=== PATIENT | male | born 1980 | race Native Hawaiian/Other Pacific Islander ===

== ENCOUNTER 2016-10-29 11:37 | Observation (INO) | payer OTHER ==
[~2016-10-29] VITALS: Ht 185.4 cm; Wt 104.5 kg
[2016-10-29 12:54] LABS: PLATELET COUNT 217 K/uL (142-355)
[2016-10-29 13:29] LABS: SODIUM 135 mmol/L (136-145)
[2016-10-29 16:13] VITALS: BP 125/71; TEMP 98; Ht 185.4 cm; Wt 104.5 kg
[2016-10-29] MEDS ORDERED: LISI20TA11 PO (16:27)
[2016-10-29] MEDS ORDERED: ZANTAC 75 PO (16:28)
[2016-10-29] MEDS ORDERED: CELEXA40 MG PO (16:28)
[2016-10-29 20:23] VITALS: BP 112/66; TEMP 98.8
[2016-10-30] VITALS (13 sets, daily range): BP systolic 100–158; BP diastolic 47–96; TEMP 97.7–98.9
[2016-10-30 05:03] LABS: POTASSIUM 4.5 mmol/L (3.6-5.2); SODIUM 138 mmol/L (136-145)
[2016-10-30 16:53] LABS: PLATELET COUNT 222 K/uL (142-355)
== END 2016-10-30 20:15 | disposition home or self-care (01) ==
LOC: MED/SURG 11:37
PROVIDERS: ADMIT Family Medicine
PROC: 0FT44ZZ Resection of Gallbladder, Percutaneous Endoscopic Approach (ICD-10-PCS; principal; 2016-10-30)
DX: K80.10 Calculus of gallbladder with chronic cholecystitis without obstruction (principal)
CPT/HCPCS: 36415; 80053; 81000; 83605; 85027; 87040; 87077; 87185; 87186; 87205; 96365; 96366; 96367; 99220; G0378; G0379; J0330; J0690; J1170; J2001; J2175; J2250; J2704; J2710; J3010; J3490

== ENCOUNTER 2016-11-07 08:39 | Emergency (ER) | payer OTHER ==
[~2016-11-07] VITALS: Ht 188 cm; Wt 110.2 kg
[~2016-11-07 08:39] MED LIST: CELEXA40 MG PO; LISI20TA11 PO; ZANTAC 75 PO
[2016-11-07 09:28] LABS: PLATELET COUNT 245 K/uL (142-355)
[2016-11-07 09:44] LABS: POTASSIUM 4.5 mmol/L (3.6-5.2); SODIUM 134 mmol/L (136-145)
[2016-11-07 14:26] VITALS: BP 117/73; TEMP 98
== END 2016-11-07 14:31 | disposition home or self-care (01) ==
LOC: ED 08:39
PROVIDERS: Emergency Medicine
DX: R10.9 Unspecified abdominal pain (principal); G89.18 Other acute postprocedural pain
CPT/HCPCS: 36415; 80053; 81000; 82150; 83690; 85027; 96372; 99283; J1885; J2270; J2405; Q9963

== ENCOUNTER → 2017-01-11 21:49 | Outpatient (CLI) | payer OTHER | END | disposition home or self-care (01) | LOC: AMB 21:49 | DX: Z04.3 Encounter for examination and observation following other accident (principal) ==

== ENCOUNTER 2017-01-11 23:06 | Emergency (ER) | payer OTHER ==
[~2017-01-11] VITALS: Ht 185.4 cm; Wt 108.9 kg
[2017-01-12 00:50] VITALS: BP 150/99; TEMP 99.1
== END 2017-01-12 00:58 | disposition home or self-care (01) ==
LOC: ED 23:06
DX: S16.1XXA Strain of muscle, fascia and tendon at neck level, initial encounter (principal); S00.83XA Contusion of other part of head, initial encounter; S41.102A Unspecified open wound of left upper arm, initial encounter; S41.101A Unspecified open wound of right upper arm, initial encounter; S46.812A Strain of other muscles, fascia and tendons at shoulder and upper arm level, left arm, initial encounter; V29.9XXA Motorcycle rider (driver) (passenger) injured in unspecified traffic accident, initial encounter; Y92.488 Other paved roadways as the place of occurrence of the external cause
CPT/HCPCS: 90715; 96372; 99283; J1885

== ENCOUNTER 2020-08-22 17:00 | Outpatient (CLI) | payer OTHER | END 2020-08-22 20:20 | disposition home or self-care (01) | LOC: RAD 17:00 | PROVIDERS: ATTEND Nurse Practitioner Family | DX: R05 Cough (principal) ==

== ENCOUNTER 2021-05-22 17:31 | Emergency (ER) | payer OTHER ==
[~2021-05-22] VITALS: Ht 185.4 cm; Wt 89.8 kg
[2021-05-22 18:41] LABS: PLATELET COUNT 218 K/uL (142-355)
[2021-05-22 18:56] LABS: POTASSIUM 4.1 mmol/L (3.6-5.2)
[2021-05-22 20:39] VITALS: BP 161/81; TEMP 98.5
== END 2021-05-22 20:39 | disposition home or self-care (01) ==
LOC: ED 17:31
PROVIDERS: Emergency Medicine Emergency Medical Services
DX: S70.01XA Contusion of right hip, initial encounter (principal); S76.011A Strain of muscle, fascia and tendon of right hip, initial encounter; V59.40XA Driver of pick-up truck or van injured in collision with unspecified motor vehicles in traffic accident, initial encounter; Y92.89 Other specified places as the place of occurrence of the external cause
CPT/HCPCS: 36415; 80053; 81000; 82150; 83690; 85027; 96360; 96375; 99284; J1885; Q9963

== ENCOUNTER 2022-05-27 12:57 | Emergency (ER) | payer OTHER ==
[~2022-05-27] VITALS: Ht 185.4 cm; Wt 89.8 kg
[2022-05-27 13:00] VITALS: TEMP 98.2
[2022-05-27 13:43] LABS: PLATELET COUNT 225 K/uL (142-355)
[2022-05-27 15:45] VITALS: BP 129/69
== END 2022-05-27 15:50 | disposition home or self-care (01) ==
LOC: ED 12:57
PROVIDERS: Emergency Medicine Emergency Medical Services
DX: J45.909 Unspecified asthma, uncomplicated (principal); Z20.822 Contact with and (suspected) exposure to COVID-19; F17.210 Nicotine dependence, cigarettes, uncomplicated
CPT/HCPCS: 84484; 85027; 85379; 87502; 87635; 93005; 94664; 96360; 96361; 96365; 96375; 99284; J0696; J2930; U0003